=== PATIENT | female | born 1955 | race African-American/Black ===

== ENCOUNTER 2016-06-28 20:38 | Inpatient (IN) | payer OTHER ==
[~2016-06-28] VITALS: Ht 165.1 cm; Wt 102.2 kg
[2016-06-28] MEDS ORDERED: SODIUM CHLORIDE 0.9% 1,000 ML IV ONE (21:39)
[2016-06-28] MEDS ORDERED: cloNIDine HCL 0.1 MG TAB PO ONE (21:45)
[2016-06-28 22:44] LABS: Basophils # (auto) 0 uL; Basophils % (auto) 0.7 % (0.0-2.0); DEFINITIVE VIEW TRANSMISSION; Eosinophils # (auto) 0.1 uL; Eosinophils % (auto) 1.6 % (0.0-7.0); Hematocrit 35.7 % (36.0-46.0); Hemoglobin 10.8 g/dL (12.2-16.2); Lymphocytes # (auto) 1.6 uL; Mean Corpuscular Hemoglobin 23.6 pg (28.0-32.0); Mean Corpuscular Hgb Conc. 30.3 g/dL (32.0-36.0); Mean Corpuscular Volume 77.8 fL (80.0-100.0); Mean Platelet Volume 11.2 fL (7.4-10.4); Monocytes # (auto) 0.3 uL; Monocytes % (auto) 5.7 % (0.0-12.0); Platelet Count (auto) 216 10^3/uL (140-450); Red Cell Distribution Width 19.4 % (11.6-16.0); SUSPECT VIEW TRANSMISSION
[2016-06-28 23:07] LABS: Partial Thromboplastin Time 23.8 sec (22.64-33.71)
[2016-06-28 23:09] LABS: INR 1.17 (0.9-1.15)
[2016-06-28 23:12] LABS: Anisocytosis Moderate; Platelet Estimate Adequate
[2016-06-28 23:13] LABS: Hypochromia Moderate; Ovalocytes MODERATE; Tear Drop Cells FEW
[2016-06-28 23:16] LABS: Albumin 3.2 g/dL (3.4-5.0); BUN/Creatinine Ratio 15.4; Calcium 8.4 mg/dL (8.5-10.1); Potassium 3.8 mmol/L (3.5-5.1)
[2016-06-28 23:20] LABS: Bilirubin, Total 0.7 mg/dL (0.2-1.0); Total Protein 8.1 g/dL (6.4-8.2)
[2016-06-28 23:25] LABS: B-Type Natriuretic Peptide 895.54 pg/mL (0-100)
[2016-06-28] MEDS ORDERED: IOHEXOL 350 MG/ML 100ML IJ ONE (23:43)
[2016-06-28] MEDS ORDERED: FUROSEMIDE 20 MG/2 ML VIAL IV ONE (23:45)
[2016-06-29] MEDS ORDERED: DOCUSATE SOD 100 MG CAP PO PRN (00:45)
[2016-06-29] MEDS ORDERED: MORPHINE SULF INJ 2 MG/ML SYRINGE 1ML IV PRN (00:45)
[2016-06-29] MEDS ORDERED: TEMAZEPAM 15 MG CAP PO PRN (00:45)
[2016-06-29] MEDS ORDERED: DEXTROSE (50%) 50ML SYRG IV PRN (00:45)
[2016-06-29] MEDS ORDERED: NITROGLYCERIN 0.4 MG SL TAB SL PRN (00:45)
[2016-06-29] MEDS ORDERED: ACETAMINOPHEN 325 MG TAB PO PRN (00:45)
[2016-06-29] MEDS ORDERED: METOPROLOL TARTRATE 25 MG TAB PO ONE (00:45)
[2016-06-29] MEDS ORDERED: ONDANSETRON HCL 4 MG/2 ML VIAL IV PRN (00:45)
[2016-06-29 03:43] VITALS: BP 124/93
[2016-06-29 05:44] VITALS: BP 124/93
[2016-06-29] MEDS: PHENYTOIN SODIUM 100 MG CAP PO SCH ×3 (06:14→22:09)
[2016-06-29] MEDS: ACCU-CHEK COMFORT CURVE STRIP VI SCH ×3 (06:15→17:22)
[2016-06-29] MEDS: InsuLIN REG 1unit/0.01ml Soln (100units/ml) SC SCH ×3 (06:18→17:29)
[2016-06-29] MEDS: LEVOTHYROXINE SODIUM 50 MCG TAB PO SCH (06:31)
[2016-06-29 08:30] VITALS: BP 133/87
[2016-06-29] MEDS: HYDROcodone-ACET 5/325MG TAB PO PRN ×2 (08:54→16:21)
[2016-06-29] MEDS: METOPROLOL TARTRATE 25 MG TAB PO SCH ×2 (08:55→22:10)
[2016-06-29] MEDS: ENOXAPARIN SOD 40 MG/0.4 ML SYRINGE SC SCH (08:56)
[2016-06-29] MEDS: FAMOTIDINE 20 MG TAB PO SCH ×2 (08:56→22:09)
[2016-06-29] MEDS ORDERED: POTASSIUM CHL 20 Meq TABLET PO ONE (09:30)
[2016-06-29] MEDS ORDERED: METOLAZONE 5 MG TAB PO ONE (09:30)
[2016-06-29] MEDS ORDERED: ALLOPURINOL 300 MG TAB PO ONE (09:30)
[2016-06-29] MEDS ORDERED: FUROSEMIDE 40 MG/4 ML VIAL IV ONE (09:30)
[2016-06-29] MEDS ORDERED: FUROSEMIDE 20 MG TAB PO SCH (10:00)
[2016-06-29] MEDS ORDERED: amLODIPine BESYLATE 5 MG TAB PO SCH (10:00)
[2016-06-29 12:34] VITALS: BP 108/73
[2016-06-29] MEDS ORDERED: LISINOPRIL 5 MG TAB PO ONE (14:00)
[2016-06-29] MEDS ORDERED: KEP500T PO (14:40)
[2016-06-29] MEDS ORDERED: AMLO5TAB2 PO (14:40)
[2016-06-29] MEDS ORDERED: SERT-274 PO (14:40)
[2016-06-29] MEDS ORDERED: ASPI-231 PO (14:44)
[2016-06-29] MEDS ORDERED: PHE100C PO (14:44)
[2016-06-29] MEDS ORDERED: LEVO50TA7 PO (14:44)
[2016-06-29] MEDS ORDERED: METF-312 PO (14:44)
[2016-06-29] MEDS ORDERED: ATEN100T PO (14:44)
[2016-06-29] MEDS ORDERED: FUROSEMIDE 20 MG/2 ML VIAL IV ONE (16:15)
[2016-06-29 16:57] VITALS: BP 117/79
[2016-06-29 22:00] VITALS: BP 130/82
[2016-06-29 22:44] LABS: Urine Bilirubin Negative (Negative); Urine Color Yellow (Yellow); Urine Glucose Normal (Normal); Urine Ketone Negative (Negative); Urine Nitrite Negative (Negative); Urine RBC 28 /hpf (0 - 4)
[2016-06-29 22:47] LABS: Urine Blood 2+ /uL (Negative)
[2016-06-30] MEDS: ACCU-CHEK COMFORT CURVE STRIP VI SCH ×4 (01:30→17:28)
[2016-06-30] MEDS: InsuLIN REG 1unit/0.01ml Soln (100units/ml) SC SCH ×4 (01:31→17:33)
[2016-06-30 05:00] VITALS: BP 128/87
[2016-06-30] MEDS: PHENYTOIN SODIUM 100 MG CAP PO SCH ×2 (06:22→14:45)
[2016-06-30] MEDS: LEVOTHYROXINE SODIUM 50 MCG TAB PO SCH (06:45)
[2016-06-30 06:54] LABS: Basophils # (auto) 0 uL; Basophils % (auto) 0.6 % (0.0-2.0); DEFINITIVE VIEW TRANSMISSION; Eosinophils # (auto) 0.1 uL; Eosinophils % (auto) 1.4 % (0.0-7.0); Hematocrit 33.4 % (36.0-46.0); Hemoglobin 10.3 g/dL (12.2-16.2); Lymphocytes # (auto) 2.3 uL; Mean Corpuscular Hemoglobin 23.9 pg (28.0-32.0); Mean Corpuscular Hgb Conc. 30.6 g/dL (32.0-36.0); Mean Corpuscular Volume 78.1 fL (80.0-100.0); Mean Platelet Volume 10.6 fL (7.4-10.4); Monocytes # (auto) 0.7 uL; Monocytes % (auto) 10.6 % (0.0-12.0); Neutrophils # (auto) 3.3 uL; Neutrophils % (auto) 51.4 % (37.0-80.0); Platelet Count (auto) 202 10^3/uL (140-450); Red Cell Distribution Width 18.6 % (11.6-16.0); SUSPECT VIEW TRANSMISSION; White Blood Cell 6.4 10^3/uL (4.4-10.8)
[2016-06-30 06:58] LABS: Calcium 8.4 mg/dL (8.5-10.1); Potassium 4.1 mmol/L (3.5-5.1)
[2016-06-30 07:00] LABS: BUN/Creatinine Ratio 23.4
[2016-06-30 09:00] VITALS: BP 128/86
[2016-06-30] MEDS ORDERED: LISINOPRIL 5 MG TAB PO SCH (10:00)
[2016-06-30] MEDS ORDERED: FUROSEMIDE 40 MG/4 ML VIAL IV SCH (10:00)
[2016-06-30] MEDS ORDERED: METOLAZONE 5 MG TAB PO SCH (10:00)
[2016-06-30] MEDS ORDERED: ALLOPURINOL 300 MG TAB PO SCH (10:00)
[2016-06-30] MEDS ORDERED: POTASSIUM CHL 20 Meq TABLET PO SCH (10:00)
[2016-06-30] MEDS: ENOXAPARIN SOD 40 MG/0.4 ML SYRINGE SC SCH (10:25)
[2016-06-30] MEDS: FAMOTIDINE 20 MG TAB PO SCH (10:28)
[2016-06-30] MEDS: METOPROLOL TARTRATE 25 MG TAB PO SCH (10:28)
[2016-06-30 13:00] VITALS: BP 131/86
[2016-06-30] MEDS ORDERED: FURO20TA PO (15:32)
[2016-06-30] MEDS ORDERED: LISI-275 PO (15:32)
[2016-06-30] MEDS ORDERED: MET25T PO (15:32)
[2016-06-30 17:00] VITALS: BP 111/75
[2016-06-30 18:21] VITALS: BP 111/75
== END 2016-06-30 20:10 | disposition home health service (06) | DRG 291 ==
LOC: ER 20:46 → TELE 20:47 → TELE-WESTW 06-29 02:55
PROVIDERS: ADMIT Nurse Practitioner; ATTEND Internal Medicine
DX: I13.0 Hypertensive heart and chronic kidney disease with heart failure and stage 1 through stage 4 chronic kidney disease, or unspecified chronic kidney disease (principal); I50.21 Acute systolic (congestive) heart failure; I42.9 Cardiomyopathy, unspecified; M10.9 Gout, unspecified; E03.9 Hypothyroidism, unspecified; E66.01 Morbid (severe) obesity due to excess calories; G40.909 Epilepsy, unspecified, not intractable, without status epilepticus; I35.0 Nonrheumatic aortic (valve) stenosis; E11.22 Type 2 diabetes mellitus with diabetic chronic kidney disease; N18.9 Chronic kidney disease, unspecified; Z90.49 Acquired absence of other specified parts of digestive tract; Z68.37 Body mass index [BMI] 37.0-37.9, adult
CPT/HCPCS: 36415; 71010; 71275; 80048; 80053; 81001; 82962; 83880; 84443; 84484; 85025; 85049; 85379; 85610; 85730; 93005; 93306; 93970; 96361; 96374; J1815

== ENCOUNTER 2016-07-10 11:38 | Emergency (ER) | payer OTHER ==
[~2016-07-10] VITALS: Ht 165.1 cm; Wt 90.7 kg
[~2016-07-10 11:38] MED LIST: ASPI-231 PO; FURO20TA PO; KEP500T PO; LEVO50TA7 PO; LISI-275 PO; MET25T PO; METF-312 PO; PHE100C PO; SERT-274 PO
[2016-07-10 11:47] VITALS: BP 161/98
[2016-07-10 12:40] LABS: Albumin 3.2 g/dL (3.4-5.0); Bilirubin, Total 1.3 mg/dL (0.2-1.0); Calcium 8.8 mg/dL (8.5-10.1); Potassium 3.5 mmol/L (3.5-5.1); Total Protein 7.7 g/dL (6.4-8.2)
== END 2016-07-10 18:51 | disposition left against medical advice (07) ==
LOC: ER 11:38
DX: M79.89 Other specified soft tissue disorders (principal); Z53.21 Procedure and treatment not carried out due to patient leaving prior to being seen by health care provider
CPT/HCPCS: 36415; 71020; 80053; 83880; 84484; 85025

== ENCOUNTER 2016-07-13 18:14 | Emergency (ER) | payer OTHER ==
[~2016-07-13] VITALS: Ht 165.1 cm; Wt 113.4 kg
[2016-07-13 19:37] LABS: Basophils # (auto) 0 uL; Basophils % (auto) 0.8 % (0.0-2.0); DEFINITIVE VIEW TRANSMISSION; Eosinophils # (auto) 0 uL; Eosinophils % (auto) 0.8 % (0.0-7.0); Hematocrit 34.9 % (36.0-46.0); Hemoglobin 10.4 g/dL (12.2-16.2); Lymphocytes # (auto) 1.3 uL; Lymphocytes % (auto) 24.5 % (10.0-50.0); Mean Corpuscular Hgb Conc. 29.9 g/dL (32.0-36.0); Mean Corpuscular Volume 77.1 fL (80.0-100.0); Mean Platelet Volume 11.2 fL (7.4-10.4); Monocytes # (auto) 0.5 uL; Monocytes % (auto) 9.6 % (0.0-12.0); Neutrophils # (auto) 3.3 uL; Neutrophils % (auto) 64.3 % (37.0-80.0); Platelet Count (auto) 255 10^3/uL (140-450); Red Cell Distribution Width 18.8 % (11.6-16.0); SUSPECT VIEW TRANSMISSION; White Blood Cell 5.1 10^3/uL (4.4-10.8)
[2016-07-13 19:57] LABS: Albumin 3.1 g/dL (3.4-5.0); BUN/Creatinine Ratio 13.6; Bilirubin, Total 1.4 mg/dL (0.2-1.0); Calcium 8.3 mg/dL (8.5-10.1); Potassium 3.1 mmol/L (3.5-5.1); Total Protein 7.5 g/dL (6.4-8.2)
[2016-07-13 20:12] LABS: Temperature: 22.3 C (20.0-25.0)
[2016-07-13] MEDS ORDERED: FUROSEMIDE 40 MG/4 ML VIAL IV ONE (23:15)
[2016-07-14 00:18] VITALS: BP 142/90
== END 2016-07-14 01:35 | disposition home or self-care (01) ==
LOC: EDUNIT# 18:14 → ER 18:19
DX: I11.0 Hypertensive heart disease with heart failure (principal); I50.23 Acute on chronic systolic (congestive) heart failure; E11.9 Type 2 diabetes mellitus without complications; M10.9 Gout, unspecified; R60.0 Localized edema; Z79.82 Long term (current) use of aspirin; Z79.899 Other long term (current) drug therapy
CPT/HCPCS: 36415; 71010; 80053; 83880; 85025; 93005; 96374; 99285; J1940

== ENCOUNTER → 2016-07-30 | Day surgery (SDC) | payer OTHER ==
[~2016-07-30] VITALS: Ht 165.1 cm; Wt 111.1 kg
[~2016-07-30] MED LIST changes: +ANGIOMAX 250 MG VIAL IV ONE; +BECL0.07 INH; +EPTIFIBATIDE INJ (2MG/ML) 10ML VIAL IV ONE; -FURO20TA PO; +FURO40TA4 PO; +HEPARIN SODIUM (PORCINE) 5000 UNITS/ML 1ML VIAL ONE; +IODIXANOL 320MG/ML 100ML BTL IV ONE; +LABETALOL HCL 5 MG/ML 4ML SYRINGE IV ONE; +LIDOCAINE 2%HCL (LOCAL ANESTH.) INJ 20ML MDV ONE; +MIDAZOLAM HCL 1MG/1ML-2 ML VIAL ONE; +POTA10TA51 PO; +SODIUM CHL 0.9% 0 ML ONE; +VERAPAMIL 2.5MG/ML INJ 2ML VIAL IV ONE; +fentaNYL CITRATE 100 MCG/2 ML VL ONE
== END | disposition home or self-care (01) ==
LOC: CATH 07:01
PROVIDERS: ATTEND Internal Medicine
DX: I35.0 Nonrheumatic aortic (valve) stenosis (principal); I50.9 Heart failure, unspecified; J40 Bronchitis, not specified as acute or chronic; Z90.710 Acquired absence of both cervix and uterus; F41.9 Anxiety disorder, unspecified; F32.9 Major depressive disorder, single episode, unspecified; F10.99 Alcohol use, unspecified with unspecified alcohol-induced disorder
CPT/HCPCS: 93458; J2250; J3490; Q9967